=== PATIENT | male | born 1990 | race Caucasian/White ===

== ENCOUNTER 2022-02-28 11:18 | Emergency (ER) | payer OTHER, SELFPAY ==
--- NOTE | ~2022-02-28 | XR_ITS ---
EXAMINATION: XR abdomen/kub 1V INDICATION: Vomiting and diarrhea TECHNIQUE: Supine view of the abdomen is obtained. COMPARISON: None FINDINGS: The bowel gas pattern is normal. No dilated loops of bowel are evident. No abnormal calcifi cations are identified. IMPRESSION: 1. Unremarkable abdominal radiograph. Reviewed, dictated and finalized at location A.
[2022-02-28 11:34] VITALS: BP 126/49; PULSE 136; RESP 16; TEMP 36.1; O2SAT 98
--- NOTE | 2022-02-28 11:41 | ED.ABDPAIN ---
HPI - Abdominal Pain General Chief Complaint: Abdominal Pain Stated Complaint: VOMITING Time Seen by Provider: 02/28/22 11:35 Source: patient, RN notes reviewed and old records reviewed Mode of arrival: ambulatory Limitations: no limitations History of Present Illness HPI narrative: 31 year old male presents to [facility] with complaints of abdominal pain, nausea and vomiting since 629, and some diarrhea but thinks he is constipated. Patient reports that he has had stomach problems for the past 5 years without diagnosis. He states that he was suppose to have scopes done then COVID and they were cancelled. 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 He states that he has been on all kind of fiber therapy for his constipation with some of it making things worse. Patient reports that his last stool was 2 days ago.Patient reports that he wakes up every day with nausea. patient admits to use of marijuana but states stopped use for 6 months and was still having same symptoms. MD elicited complaint: abdominal pain Pertinent past history: constipation Pain Consistency: constant Location: periumbilical Radiation: none Associated symptoms: nausea and vomiting Related Data Allergies Allergy/AdvReac Type Severity Reaction Status Date / Time cat dander Allergy Unknown +allergy Verified 02/28/22 13:38 test dog dander Allergy Unknown Itching Verified 02/28/22 13:38 Review of Systems Review of Systems: CONSTITUTIONAL: Denies fever, chills, or sweats. EYES: Denies visual changes, redness, or discharge. ENT: Denies rhinorrhea, congestion, sore throat, or otalgia. CARDIOVASCULAR: Denies chest pain, palpitations, or edema. RESPIRATORY: Denies cough or dyspnea. GASTROINTESTINAL: Positive for abdominal pain, nausea, vomiting, or diarrhea and constipation GENITOURINARY: Denies dysuria or hematuria. SKIN: Denies rash or itching. MUSCULOSKELETAL: Denies back pain, joint pain, or myalgia. NEUROLOGIC: Denies headache, numbness, or weakness. PSYCHIATRIC: Positive anxiety or depression. All systems reviewed & are unremarkable except as noted in HPI and below PMFSH Past Medical History Medical History (Updated 02/28/22 @ 15:05 by Naa Bourgoeis MD) Abdominal pain Broken bones Nausea & vomiting Surgical History Surgical History H/O right knee surgery repair patella Social History Social History Smoking status: Former smoker Additional smoking assessment comments: Quit 10 years ago Alcohol intake: current Alcohol use details: social Substance use type: marijuana Last use: this morning Gender identity (if verbalized by the patient): Male Comments At time of signature, agree with nursing past medical, surgical, social and family history. There is no relevant family history pertinent to the presenting complaint Exam Narrative: GENERAL: Ill-appearing, fair-nourished, and in no acute distress. HEAD: Normocephalic, atraumatic. EYES: PERRLA and EOMI. ENT: Nares clear, no rhinorrhea or epistaxis. Mucous membranes moist.TM's normal, throat with mild redness no lesions or exudates or tonsil enlargement. NECK: Supple.no lymphadenopathy CHEST: Clear to auscultation. No respiratory distress. SAO2 98% on room air HEART: Regular rate and rhythm. No murmur heard. Normal peripheral pulses. ABDOMEN: Soft, tender around mid abdomen region, no McBurney point tenderness noted, nondistended, hypo active bowel sounds. EXTREMITIES: Normal range of motion. No edema. SKIN: Warm, dry, no rash. NEURO: No focal deficits. Alert and oriented x3. Course Course Level of Care: Express Care Visit Vital Signs Vital signs: Vital Signs Temperature 36.1 C L 02/28/22 11:34 Pulse Rate 136 H 02/28/22 11:34 Respiratory Rate 16 02/28/22 11:34 Blood Pressure
[2022-02-28] MEDS: ONDANSETRON HCL ODT 4 MG TABLET SUBLINGUAL (12:04)
== END 2022-02-28 12:31 | disposition short-term general hospital (02) ==
PROVIDERS: Emergency Provider Registered Nurse
DX: R10.33 Periumbilical pain (principal); R11.2 Nausea with vomiting, unspecified; Z87.891 Personal history of nicotine dependence
CPT/HCPCS: 74018; 99213; A9270; G0463

== ENCOUNTER 2022-02-28 12:56 | Emergency (ER) | payer OTHER, SELFPAY ==
--- NOTE | ~2022-02-28 | CT_ITS ---
EXAMINATION: CT abdomen pelvis w con DATE: 02/28/2022 15:14 INDICATION: Mid abdominal pain, vomiting. Leukocytosis. TECHNIQUE: Computed tomography (CT) of the abdomen and pelvis was performed with 100 CC Omnipaque 350 intravenous contrast. Automated exposure control and iterative reconstruction technique were employe d. Exam dose: 234.05 mGy-cm total exam DLP. COMPARISON: 02/28/2022 KUB FINDINGS: The lung bases are clear of infiltrate or consolidation. Normal heart size. No pericardial or pleural effusion. The liver, gallbladder, bile ducts, spleen, pancreas, pancreatic duct, and adrenal glands and kidneys are unremarkable. No urinary tract calculus or hydroureteronephrosis. The urinary bladder, prostate gland and seminal vesicles are unremarkable. Normal caliber of the abdominal aorta. No intraperitoneal or retroperitoneal or pelvic mass lesion or adenopathy or ascites. Normal appendix. No bowel obstruction or intraperitoneal free air. Included skeletal structures are unremarkable. IMPRESSION: Normal appendix No significant abnormality Reviewed, dictated and finalized at Location [facility]. Reviewed, dictated and finalized at location B.
--- NOTE | ~2022-02-28 | XR_ITS ---
EXAMINATION: XR chest 2V DATE: 02/28/2022 15:20 INDICATION: Nausea and vomiting TECHNIQUE: PA and lateral views of the chest are obtained. COMPARISON: None available FINDINGS: The lungs are free of acute opacities. There is no pleural effusion or pneumothorax. The ca rdiomediastinal silhouette is normal. The visualized bones and soft tissues are unremarkable. IMPRESSION: 1. No acute cardiopulmonary abnormality. Reviewed, dictated and finalized at location A.
[2022-02-28 13:06] VITALS: BP 130/84; PULSE 76; RESP 18; TEMP 36.6; O2SAT 100
[2022-02-28 13:55] LABS: Basophils Percent Auto 0.3 % (0.2-1.2); Hematocrit 44.4 % (42.0-52.0); Hemoglobin 15.2 g/dL (14.0-18.0); Immature Granulocyte Absolute 0.05 K/mm3 (0.00-0.031); Immature Granulocyte Percent A 0.4 % (0-0.5); Lymphocytes Absolute Auto 0.79 K/mm3 (0.9-3.2); Lymphocytes Percent Auto 5.7 % (18.3-44.2); Mean Corpuscular HGB Conc 34.2 g/dl (32-36); Mean Corpuscular Hemoglobin 30.6 pg (26-34); Mean Corpuscular Volume 89.5 fl (80-100); Mean Platelet Volume 11.6 fl (7.4-10.4); Monocytes Absolute Auto 0.6 K/mm3 (0.1-0.6); Neutrophils Absolute Auto 12.3 K/mm3 (1.3-6.7); Neutrophils Percent Auto 89.6 % (45.5-73.1); Platelet Count Result 235 k/mm3 (150-375); Red Blood Count 4.96 M/mm3 (4.6-6.20); Red Cell Distribution Width 12.4 % (11.5-14.5); White Blood Count 13.7 K/mm3 (4.5-10.0)
[2022-02-28 14:15] LABS: Alanine Aminotransferase 21 U/L (6-50); Albumin Level 4.9 g/dL (3.5-5.1); Alkaline Phosphatase 68 U/L (38-126); Anion Gap 9 mmol/L (8-16); Aspartate Amino Transferase 32 U/L (17-59); Bilirubin,Total 0.8 mg/dL (0.2-1.3); Blood Urea Nitrogen 10 mg/dL (9-20); Calcium 9.6 mg/dL (8.4-10.2); Carbon Dioxide 25 mmol/L (22-30); Chloride 104 mmol/L (98-107); Estimated CRCL calculation 94 ml/min; Estimated Glomerular Filt Rate > 60; Glucose 127 mg/dL (65-110); Lipase 45 U/L (23-300); Potassium 3.6 mmol/L (3.4-5.0); Sodium 138 mmol/L (137-145)
--- NOTE | 2022-02-28 14:39 | ED.NAVMDI ---
HPI - Nausea/Vomiting/Diarrhea General Chief complaint: Nausea/Vomiting/Diarrhea Stated complaint: vomiting, dehydration Time Seen by Provider: 02/28/22 14:20 Source: patient Mode of arrival: ambulatory Limitations: no limitations History of Present Illness HPI Narrative: Patient is a 31-year-old male with a history of irritable bowel syndrome presenting to the emergency department for evaluation of nausea, vomiting, abdominal pain. Patient reports that he has had multiple episodes of nonbloody, nonbilious emesis over the past 72 hours. Patient states that he struggles with chronic nausea and vomiting that is usually at its worst in the morning. 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 [facility], denies taking any antinausea medication or pain medication. Patient denies history of endoscopy in the past, states that these were canceled secondary to COVID. Patient now is permanently residing in this area but has not established care at the local [place]. Patient denies fever, chills, reports diaphoresis at times. He reports burning chest pain without jaw pain, neck pain or shoulder pain. Patient reports burning epigastric pain as well as associated nausea. Patient reports he struggles with chronic constipation. Patient has not had a bowel movement today. Reports history of COVID for which she did not require hospitalization Patient does report marijuana use which is what he states helps to alleviate his symptoms. In the past he had discontinue marijuana for 6 months without a change in his symptoms. Patient denies history of abdominal surgery. Of note, the time of my assessment, patient states he is very thirsty and is tolerating ice chips without nausea or vomiting. Related Data Allergies Allergy/AdvReac Type Severity Reaction Status Date / Time cat dander Allergy Unknown +allergy Verified 02/28/22 13:38 test dog dander Allergy Unknown Itching Verified 02/28/22 13:38 Review of Systems Review of Systems: CONSTITUTIONAL: Denies fever, chills, or sweats. EYES: Denies visual changes, redness, or discharge. ENT: Denies rhinorrhea, congestion, sore throat, or otalgia. CARDIOVASCULAR: Denies chest pain, palpitations, or edema. RESPIRATORY: Denies cough or dyspnea. GASTROINTESTINAL: Reports abdominal pain, nausea and vomiting GENITOURINARY: Denies dysuria or hematuria. SKIN: Denies rash or itching. MUSCULOSKELETAL: Denies back pain, joint pain, or myalgia. NEUROLOGIC: Denies headache, numbness, or weakness. [facility] Past Medical History Medical History (Updated 02/28/22 @ 16:38 by Naa Bourgeois MD) Abdominal pain Broken bones Nausea & vomiting Surgical History Surgical History H/O right knee surgery repair patella Social History Social History Smoking status: Former smoker Additional smoking assessment comments: Quit 10 years ago Alcohol intake: current Alcohol use details: social Substance use type: marijuana Last use: this morning Gender identity (if verbalized by the patient): Male Exam Narrative: GENERAL: Awake, alert, conversant HEAD: Normocephalic, atraumatic. EYES: PERRLA and EOMI. ENT: Nares clear, no rhinorrhea or epistaxis. Mucous membranes moist. NECK: Supple. CHEST: No respiratory distress, breathing even and non labored HEART: Regular rate, sinus rhythm ABDOMEN:Non distended, tender in the epigastrium and periumbilical area without rigidity, guarding, rebound, no flank tenderness bilaterally EXTREMITIES: Normal range of motion. No edema. SKIN: Warm, dry, no rash. NEURO:No focal deficits. Alert and oriented x3 Course Vital Signs Vital signs: Vital Signs Temperature 36.6 C 02/28/22 13:06 Pulse Rate 76 02/28/22 13:06 Respiratory Rate 18 02/28/22 13:06 Blood Pressure
[2022-02-28 15:02] LABS: Appearance Urine Cloudy (Clear); Bilirubin Urine 1+ (Negative); Blood Urine Negative (Negative); Color Urine Yellow (Yellow); Glucose Urine UA Negative (Negative); Ketones Urine 4+ mg/dL (Negative); Leukocyte Esterase Ur Negative LEU/UL (Negative); Nitrate Urine Negative (Negative); Protein Urine 2+ mg/dL (Negative); pH Urine 8.5 (5.0-9.0)
--- NOTE | 2022-02-28 15:05 | ECG_ITS ---
Measurements Intervals [place] Rate: 66 P: 44 HI: 136 QRS: 71 QRSD: 89 T: 55 QT: 403 QTc: 425 Interpretive Statements SINUS RHYTHM WITH SINUS ARRHYTHMIA INCOMPLETE RIGHT BUNDLE BRANCH BLOCK BORDERLINE ECG Electronically Signed On 02-28-2022 16:07:53 CDT by Steve Parisi D.O.
[2022-02-28 15:13] LABS: Add Urine Microscopic? YES; Bacteria Urine Trace /hpf; Mucus Urine Heavy /lpf; RBC Urine 21-50 /hpf (0-2); Squamous Epithelial Cell Urine Rare /hpf (Few); WBC Urine 0-3 /hpf
[2022-02-28] MEDS: SODIUM CHLORIDE 0.9% IV 1,000 ML 999 ML IV CONT (15:25)
[2022-02-28] MEDS: DICYCLOMINE HCL INJ 20 MG/2 ML VIAL IM (15:25)
[2022-02-28] MEDS: METOCLOPRAMIDE HCL INJ 10 MG/2 ML VIAL IV PUSH (15:26)
[2022-02-28] MEDS: FAMOTIDINE 20 MG/2 ML VIAL IV PUSH (15:26)
[2022-02-28 15:33] LABS: Troponin I < 0.012 ng/mL (0.000-0.034)
[2022-02-28 16:48] VITALS: BP 121/76; PULSE 94; RESP 16; O2SAT 98
== END 2022-02-28 17:23 | disposition home or self-care (01) ==
PROVIDERS: Emergency Medicine; Emergency Provider Emergency Medicine
DX: K52.9 Noninfective gastroenteritis and colitis, unspecified (principal); E86.0 Dehydration; Z86.16 Personal history of COVID-19; Z87.891 Personal history of nicotine dependence; K58.9 Irritable bowel syndrome, unspecified
CPT/HCPCS: 36415; 71046; 74177; 80053; 81001; 83690; 84484; 85025; 93005; 96361; 96372; 96374; 96375; 99284; J0131; J0500; J2765; J7030; Q9967

== ENCOUNTER 2022-03-02 03:14 | Emergency (ER) | payer OTHER, SELFPAY ==
[2022-03-02 03:15] VITALS: BP 122/75; PULSE 89; RESP 18; TEMP 36.3; O2SAT 97
[2022-03-02 03:35] VITALS: BP 134/93
[2022-03-02] MEDS: METOCLOPRAMIDE HCL INJ 10 MG/2 ML VIAL IM (03:49)
[2022-03-02] MEDS: FAMOTIDINE 20 MG/2 ML VIAL IV PUSH (04:19)
[2022-03-02] MEDS: SODIUM CHLORIDE 0.9% IV 2,000 ML 999 ML IV CONT (04:20)
[2022-03-02] MEDS: diphenhydrAMINE HCl INJ 50 MG/ML VIAL IV PUSH (04:20)
[2022-03-02 04:31] VITALS: BP 121/79; O2SAT 100
[2022-03-02 05:01] VITALS: BP 114/69; O2SAT 100
[2022-03-02 05:16] VITALS: BP 113/66; O2SAT 100
--- NOTE | 2022-03-02 05:23 | ED.NAVMDI ---
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 States that symptoms are similar to 2 days ago, but he feels worse, endorses abdominal pain he thinks from throwing up. No fevers or chills. Related Data Allergies Allergy/AdvReac Type Severity Reaction Status Date / Time cat dander Allergy Unknown +allergy Verified 03/02/22 03:17 test dog dander Allergy Unknown Itching Verified 03/02/22 03:17 Review of Systems Review of Systems: All systems reviewed & are unremarkable except as noted in HPI and below PMFSH Past Medical History Medical History Abdominal pain Broken bones Nausea & vomiting Surgical History Surgical History H/O right knee surgery repair patella Social History Social History Smoking status: Former smoker Additional smoking assessment comments: Quit 10 years ago Alcohol intake: current Alcohol use details: social Substance use type: marijuana Last use: this morning Gender identity (if verbalized by the patient): Male Exam Narrative: EXAMINATION OF ORGAN SYSTEMS/BODY AREAS: Constitutional: Vital signs per nursing GENERAL: Actively retching, appears miserable HEAD: Normal with no signs of head trauma. EYES: EOMI, conjunctiva normal ENT: Hearing grossly intact LUNGS: Nonlabored breathing. HEART: [Regular rate and rhythm] ABD: [Soft], [tender to palpation epigastric] EXT: Normal range of motion SKIN: [No rashes or lesions.] NEURO: [Alert and oriented x 3. No gross focal sensory or strength deficits.] PSYCH: Normal affect Course Course Emergency Course: Electronic medical record was reviewed. Patient presented to the ED with complaint of [abdominal pain and vomiting]. Vitals [were within acceptable limits]. Physical exam revealed [tenderness to palpation in epigastric abdomen]. Based on the patient's history and physical exam, my differential includes but is not limited to [gastritis, gastroenteritis, cholecystitis, pancreatitis, appendicitis], though less likely acute intraabdominal etiology given negative CT from 2d ago and no new symptoms. [IV access was established by nursing staff. Patient was given reglan, IV fluids, famotidine]. On reevaluation, the patient states that they are feeling much better, he is resting comfortably and states he hasn't felt this well in a week. There were no further witnessed episodes of vomiting in the emergency department. They are not complaining of any new abdominal pain. Repeat examination did not show any significant guarding or rebound. No new tenderness. At this time I do not feel there is any further emergent workup or treatment to be provided. The patient was given strict return precautions, if they are to develop any worsening abdominal pain or vomiting they are to return to the emergency department immediately. Patient verbally acknowledges understanding these directions. They will be discharged home [with prescriptions]. They were advised to follow-up with GI and PCP in 2 days. The patient feels that this is appropriate medical decision making and verbalizes an understanding of the discharge instructions. DISPOSITION: [Home] CONDITION: Fair. FOLLOWUP: With [PCP]/GI in 2 days. FINAL IMPRESSIONS: 1. Abdominal pain, NOS Vital Signs Vital signs: Vital Signs Temperature 97.3 F L 03/02/22 03:15 Pulse Rate 89 03/02/22
== END 2022-03-02 06:18 | disposition home or self-care (01) ==
PROVIDERS: Emergency Provider Emergency Medicine
DX: K52.9 Noninfective gastroenteritis and colitis, unspecified (principal); E86.0 Dehydration; Z87.891 Personal history of nicotine dependence
CPT/HCPCS: 96361; 96372; 96374; 96375; 99284; J1200; J2765; J7030

== ENCOUNTER 2022-08-03 03:22 | Emergency (ER) | payer OTHER, SELFPAY ==
[2022-08-03] VITALS (10 sets, daily range): BP systolic 99–139; BP diastolic 71–88; PULSE 63–92; RESP 14–23; TEMP 36.1; O2SAT 97–100
[2022-08-03 03:57] LABS: Basophils Percent Auto 0.3 % (0.2-1.2); Eosinophils Absolute Auto 0.1 K/mm3 (0-0.3); Eosinophils Percent Auto 0.7 % (0-4.4); Hematocrit 46.4 % (42.0-52.0); Immature Granulocyte Absolute 0.03 K/mm3 (0.00-0.031); Immature Granulocyte Percent A 0.3 % (0-0.5); Lymphocytes Absolute Auto 1.39 K/mm3 (0.9-3.2); Lymphocytes Percent Auto 11.7 % (18.3-44.2); Mean Corpuscular HGB Conc 34.5 g/dl (32-36); Mean Corpuscular Hemoglobin 30.4 pg (26-34); Mean Platelet Volume 11.9 fl (7.4-10.4); Monocytes Absolute Auto 1.1 K/mm3 (0.1-0.6); Monocytes Percent Auto 9.3 % (2.6-8.5); Neutrophils Absolute Auto 9.3 K/mm3 (1.3-6.7); Neutrophils Percent Auto 77.7 % (45.5-73.1); Platelet Count Result 205 k/mm3 (150-375); Red Blood Count 5.27 M/mm3 (4.6-6.20); Red Cell Distribution Width 12.5 % (11.5-14.5); White Blood Count 11.9 K/mm3 (4.5-10.0)
[2022-08-03] MEDS: SODIUM CHLORIDE 0.9% IV 1,000 ML 999 ML IV CONT (03:59)
[2022-08-03] MEDS: ONDANSETRON INJ 4 MG/2 ML VIAL IV PUSH (03:59)
[2022-08-03] MEDS: MORPHINE SULFATE (*CRX) 4 MG/ML INJ IV PUSH (04:01)
[2022-08-03 04:53] LABS: Alanine Aminotransferase 17 U/L (6-50); Alkaline Phosphatase 60 U/L (38-126); Anion Gap 10 mmol/L (8-16); Aspartate Amino Transferase 21 U/L (17-59); Bilirubin,Total 0.8 mg/dL (0.2-1.3); Blood Urea Nitrogen 12 mg/dL (9-20); Calcium 8.5 mg/dL (8.4-10.2); Carbon Dioxide 26 mmol/L (22-30); Chloride 103 mmol/L (98-107); Estimated CRCL calculation 94 ml/min; Estimated Glomerular Filt Rate > 60; Glucose 128 mg/dL (65-110); Lipase 34 U/L (23-300); Potassium 3.5 mmol/L (3.4-5.0); Sodium 139 mmol/L (137-145)
[2022-08-03] MEDS: PSEUDOEPHEDRINE HCL 30 MG TABLET PO (05:49)
--- NOTE | 2022-08-03 06:03 | ED.ABDPAIN ---
HPI - Abdominal Pain General Chief Complaint: Abdominal Pain Stated Complaint: N/V, abd pain Time Seen by Provider: 08/03/22 03:40 History of Present Illness HPI narrative: Patient is a 31-year-old male who presents ER with nausea and vomiting. Reports began this evening because he has bad postnasal drip that is causing him to gag which then makes him vomit. Due to his vomiting he is now having epigastric discomfort as well. He has not tried any decongestants. He has not had any antinausea medication. Denies fevers or chills or sweats. No diarrhea. No known sick contacts. Symptoms are worsened by laying backwards and better with sitting upright. Patient reports he had endoscopy 3 weeks ago that was unremarkable. Related Data Allergies Allergy/AdvReac Type Severity Reaction Status Date / Time cat dander Allergy Unknown +allergy Verified 08/03/22 03:45 test dog dander Allergy Unknown Itching Verified 08/03/22 03:45 Review of Systems Review of Systems: All systems reviewed & are unremarkable except as noted in HPI and below Constitutional: Constitutional: Denies chills, Denies fatigue and Denies fever(s) ENT: Denies dysphagia, Reports nasal congestion and Denies sore throat Cardiovascular: Cardiovascular: Denies chest pain and Denies rapid heart rate Respiratory: Respiratory: Denies cough and Denies dyspnea Gastrointestinal: Gastrointestinal: Reports abdominal pain, Denies constipation, Denies diarrhea, Reports nausea and Reports vomiting Integumentary/Breasts: Skin/Breast: Denies erythema and Denies rash PMFSH Past Medical History Medical History Abdominal pain Broken bones Nausea & vomiting Surgical History Surgical History H/O right knee surgery repair patella Social History Social History Smoking status: Former smoker Additional smoking assessment comments: Quit 10 years ago Alcohol intake: current Alcohol use details: social Substance use type: marijuana Last use: this morning Gender identity (if verbalized by the patient): Male Exam Narrative: GENERAL: Well-appearing, well-nourished, and in no acute distress. HEAD: Normocephalic, atraumatic. ENT: Mucous membranes moist. CHEST: Clear to auscultation. No respiratory distress. HEART: Regular rate and rhythm. Normal peripheral pulses. ABDOMEN: Soft, mild epigastric tenderness, nondistended, normal active bowel sounds. EXTREMITIES: Normal range of motion. No edema. SKIN: Warm, dry, no rash. NEURO: Alert and oriented x3. PSYCH: Normal mood and affect. Course Course Emergency Course: Nausea and vomiting improved. Discharge home. Repeat exam patient nontender. Vital Signs Vital signs: Vital Signs Temperature 97.0 F L 08/03/22 03:30 Pulse Rate 82 08/03/22 03:30 Respiratory Rate 14 08/03/22 03:30 Blood Pressure 139/85 08/03/22 03:30 Pulse Oximetry 98 08/03/22 03:30 Oxygen Delivery Room Air 08/03/22 03:30 Temperature 97.0 F L 08/03/22 03:30 Pulse Rate 70 08/03/22 07:16 Respiratory Rate 17 08/03/22 07:16 Blood Pressure 108/75 08/03/22 07:16 Pulse Oximetry 97 08/03/22 07:16 Oxygen Delivery Room Air 08/03/22 03:30 MDM - Abdominal Pain Lab Data Result diagrams: 08/03/22 03:52 08/03/22 04:27 Labs: Lab Results 08/03/22 08/03/22 Range/Units 03:52 04:27 WBC 11.9 H (4.5-10.0) K/mm3 RBC 5.27 (4.6-6.20) M/mm3 Hgb 16.0 (14.0-18.0) g/dL Hct 46.4 (42.0-52.0) % MCV 88.0 (80-100) fl MCH 30.4 (26-34) pg MCHC 34.5 (32-36) g/dl RDW 12.5 (11.5-14.5) % Plt Count 205 (150-375) k/mm3 MPV 11.9 H (7.4-10.4) fl Immature Gran % (Auto) 0.3 (0-0.5) % Neut % (Auto) 77.7 H (45.5-73.1) % Lymph % (Auto) 11.7 L (18.3-44.2) % [place]ites[place] % (Auto) 9.3 H (2.6-8.5) % Eos %
== END 2022-08-03 08:37 | disposition home or self-care (01) ==
PROVIDERS: Emergency Provider Emergency Medicine
DX: R11.2 Nausea with vomiting, unspecified (principal); R09.82 Postnasal drip; R10.13 Epigastric pain; Z87.891 Personal history of nicotine dependence
CPT/HCPCS: 36415; 80053; 83690; 85025; 96374; 96375; 99284; A9270; J2270; J2405; J7030

== ENCOUNTER 2022-09-12 08:10 | Emergency (ER) | payer OTHER, SELFPAY ==
[2022-09-12 08:24] VITALS: BP 130/81; PULSE 94; RESP 18; TEMP 36.6; O2SAT 100
[2022-09-12] MEDS: ONDANSETRON INJ 4 MG/2 ML VIAL IV PUSH ×2 (08:46→10:41)
[2022-09-12] MEDS: SODIUM CHLORIDE 0.9% IV 1,000 ML 999 ML IV CONT (08:46)
[2022-09-12 08:57] LABS: Basophils Absolute Auto 0.1 K/mm3 (0.0-0.1); Basophils Percent Auto 0.4 % (0.2-1.2); Eosinophils Absolute Auto 0.1 K/mm3 (0-0.3); Eosinophils Percent Auto 0.5 % (0-4.4); Hematocrit 45.4 % (42.0-52.0); Immature Granulocyte Absolute 0.06 K/mm3 (0.00-0.031); Immature Granulocyte Percent A 0.4 % (0-0.5); Lymphocytes Percent Auto 8.1 % (18.3-44.2); Mean Corpuscular HGB Conc 35.2 g/dl (32-36); Mean Corpuscular Hemoglobin 31.1 pg (26-34); Mean Corpuscular Volume 88.2 fl (80-100); Mean Platelet Volume 11.8 fl (7.4-10.4); Monocytes Absolute Auto 0.8 K/mm3 (0.1-0.6); Monocytes Percent Auto 5.1 % (2.6-8.5); Neutrophils Absolute Auto 13.7 K/mm3 (1.3-6.7); Neutrophils Percent Auto 85.5 % (45.5-73.1); Platelet Count Result 236 k/mm3 (150-375); Red Blood Count 5.15 M/mm3 (4.6-6.20); Red Cell Distribution Width 12.6 % (11.5-14.5)
[2022-09-12 09:10] LABS: Appearance Urine Slightly Cloudy (Clear); Bilirubin Urine 1+ (Negative); Blood Urine Negative (Negative); Color Urine Yellow (Yellow); Glucose Urine UA Negative (Negative); Ketones Urine 1+ mg/dL (Negative); Leukocyte Esterase Ur Negative LEU/UL (Negative); Nitrate Urine Negative (Negative); Protein Urine 2+ mg/dL (Negative)
[2022-09-12 09:12] LABS: Add Urine Microscopic? YES
[2022-09-12 09:14] LABS: Alanine Aminotransferase 20 U/L (6-50); Albumin Level 4.8 g/dL (3.5-5.1); Alkaline Phosphatase 78 U/L (38-126); Anion Gap 7 mmol/L (8-16); Aspartate Amino Transferase 30 U/L (17-59); Bilirubin,Total 0.5 mg/dL (0.2-1.3); Blood Urea Nitrogen 8 mg/dL (9-20); Calcium 9.6 mg/dL (8.4-10.2); Carbon Dioxide 24 mmol/L (22-30); Chloride 105 mmol/L (98-107); Estimated CRCL calculation 86 ml/min; Estimated Glomerular Filt Rate > 60; Glucose 144 mg/dL (65-110); Lipase 98 U/L (23-300); Potassium 3.7 mmol/L (3.4-5.0); Sodium 136 mmol/L (137-145)
[2022-09-12 09:23] LABS: Bacteria Urine Trace /hpf; Mucus Urine Heavy /lpf; WBC Urine 0-3 /hpf
[2022-09-12 10:14] VITALS: BP 131/78; PULSE 70; RESP 17; O2SAT 100
[2022-09-12] MEDS: FAMOTIDINE 20 MG/2 ML VIAL IV PUSH (10:41)
[2022-09-12 11:55] VITALS: BP 136/84; PULSE 82; RESP 16; O2SAT 98
--- NOTE | 2022-09-12 12:05 | ED.NAVMDI ---
HPI - Nausea/Vomiting/Diarrhea General Chief complaint: Nausea/Vomiting/Diarrhea Stated complaint: n/v since 399, can't regulate my temp Time Seen by Provider: 09/12/22 08:18 History of Present Illness HPI Narrative: Patient is a 31-year-old male who presents ER with nausea and vomiting. Normal this morning. He has waves of dry heaving. Reports chronic diarrhea. Has chronic GI issues that he sees a GI physician at the [place] for. He had a endoscopy and colonoscopy 3 months ago that he reports was unremarkable. No blood in the stool or emesis. Reports he tried taking a Zofran but it caused him to have upset stomach. He opted to come here for further evaluation. No recent sick contacts. Related Data Allergies Allergy/AdvReac Type Severity Reaction Status Date / Time cat dander Allergy Unknown +allergy Verified 09/12/22 08:27 test dog dander Allergy Unknown Itching Verified 09/12/22 08:27 Review of Systems Review of Systems: All systems reviewed & are unremarkable except as noted in HPI and below Constitutional: Constitutional: Reports chills, Denies fatigue and Denies fever(s) ENT: Denies nasal congestion and Denies sore throat Cardiovascular: Cardiovascular: Denies chest pain, Denies rapid heart rate and Denies radiating jaw, neck or arm pain Respiratory: Respiratory: Denies cough, Denies dyspnea and Denies wheezing Gastrointestinal: Gastrointestinal: Reports abdominal pain, Reports diarrhea, Reports nausea and Reports vomiting Genitourinary: Genitourinary: Denies dysuria and Denies urinary frequency PMFSH Past Medical History Medical History Abdominal pain Broken bones Nausea & vomiting Surgical History Surgical History H/O right knee surgery repair patella Social History Social History Smoking status: Former smoker Additional smoking assessment comments: Quit 10 years ago Alcohol intake: current Alcohol use details: social Substance use type: marijuana Last use: this morning Gender identity (if verbalized by the patient): Male Exam Narrative: GENERAL: Uncomfortable/anxious-appearing, well-nourished, and in no acute distress. HEAD: Normocephalic, atraumatic. EYES: PERRL and EOMI. ENT: Mucous membranes moist. CHEST: Clear to auscultation. No respiratory distress. HEART: Regular rate and rhythm. Normal peripheral pulses. ABDOMEN: Soft, nontender, nondistended. EXTREMITIES: Normal range of motion. No edema. SKIN: Warm, dry, no rash. NEURO: Alert and oriented x3. PSYCH: Normal mood and affect. Course Course Emergency Course: No emesis. Antiemetics have helped. Patient is having some hiccuping which is causing him to have an upset stomach. He is unable to eat eat while in the ER will be discharged. Vital Signs Vital signs: Vital Signs Temperature 97.8 F 09/12/22 08:24 Pulse Rate 94 09/12/22 08:24 Respiratory Rate 18 09/12/22 08:24 Blood Pressure 130/81 09/12/22 08:24 Pulse Oximetry 100 09/12/22 08:24 Oxygen Delivery Room Air 09/12/22 08:24 Temperature 97.8 F 09/12/22 08:24 Pulse Rate 70 09/12/22 10:14 Respiratory Rate 17 09/12/22 10:14 Blood Pressure 131/78 09/12/22 10:14 Pulse Oximetry 100 09/12/22 10:14 Oxygen Delivery Room Air 09/12/22 08:24 MDM - Nausea/Vomiting/Diarrhea Lab Data Result diagrams: 09/12/22 08:49 09/12/22 08:49 Labs: Lab Results 09/12/22 09/12/22 09/12/22 Range/Units 08:49 08:49 08:49 WBC 16.0 H (4.5-10.0) K/mm3 RBC 5.15 (4.6-6.20) M/mm3 Hgb 16.0 (14.0-18.0) g/dL Hct 45.4 (42.0-52.0) % MCV 88.2 (80-100) fl MCH 31.1 (26-34) pg MCHC 35.2 (32-36) g/dl RDW 12.6 (11.5-14.5) % Plt Count 236 (150-375) k/mm3 MPV 11.8 H (7.4-10.4) fl Immature Gran % (Auto) 0.4 (0-0.5)
== END 2022-09-12 12:41 | disposition home or self-care (01) ==
PROVIDERS: Emergency Provider Emergency Medicine
DX: R11.2 Nausea with vomiting, unspecified (principal); Z87.891 Personal history of nicotine dependence
CPT/HCPCS: 36415; 80053; 81001; 83690; 85025; 96361; 96374; 96375; 99284; J2405; J7030

== ENCOUNTER 2022-09-14 12:05 | Emergency (ER) | payer OTHER, SELFPAY ==
--- NOTE | ~2022-09-14 | US_ITS ---
EXAMINATION: US abdomen limited DATE: 09/14/2022 15:13 INDICATION: Nausea, vomiting and epigastric pain. TECHNIQUE: Multiple grayscale and Doppler ultrasound images of the abdomen were obtained. COMPARISON: None FINDINGS: The pancreatic head and body are normal in appearance. The pancreatic tail is not visualized. Liver has normal echogenicity and contour, with a smooth surface. No liver lesion identified. No intrahepat ic biliary duct dilation suspected. Portal venous flow was seen in the hepatopetal, normal direction and has normal Doppler waveform. The gallbladder is normal in appearance. There is no cholelithiasis . The common bile duct measures 4 mm, which is normal. Sonographic Miranda sign was reported as negati ve by the personal carer. Visualized proximal inferior vena cava is normal. Visualized right kidney demo nstrates normal contour and echogenicity with no hydronephrosis. IMPRESSION: 1. Normal right upper quadrant ultrasound. Reviewed, dictated and finalized at location A. INSTRUCTOR
[2022-09-14 12:20] VITALS: BP 133/97; PULSE 87; RESP 18; TEMP 37.5; O2SAT 100
[2022-09-14 12:34] LABS: Basophils Percent Auto 0.2 % (0.2-1.2); Hematocrit 43.7 % (42.0-52.0); Immature Granulocyte Absolute 0.04 K/mm3 (0.00-0.031); Immature Granulocyte Percent A 0.3 % (0-0.5); Lymphocytes Absolute Auto 1.21 K/mm3 (0.9-3.2); Lymphocytes Percent Auto 10.4 % (18.3-44.2); Mean Corpuscular HGB Conc 34.3 g/dl (32-36); Mean Corpuscular Hemoglobin 30.2 pg (26-34); Mean Corpuscular Volume 87.9 fl (80-100); Mean Platelet Volume 11.6 fl (7.4-10.4); Monocytes Absolute Auto 0.7 K/mm3 (0.1-0.6); Monocytes Percent Auto 6.4 % (2.6-8.5); Neutrophils Absolute Auto 9.6 K/mm3 (1.3-6.7); Neutrophils Percent Auto 82.7 % (45.5-73.1); Platelet Count Result 220 k/mm3 (150-375); Red Blood Count 4.97 M/mm3 (4.6-6.20); Red Cell Distribution Width 12.5 % (11.5-14.5); White Blood Count 11.6 K/mm3 (4.5-10.0)
[2022-09-14 12:55] LABS: Alanine Aminotransferase 21 U/L (6-50); Alkaline Phosphatase 65 U/L (38-126); Anion Gap 13 mmol/L (8-16); Aspartate Amino Transferase 32 U/L (17-59); Blood Urea Nitrogen 13 mg/dL (9-20); Calcium 9.8 mg/dL (8.4-10.2); Carbon Dioxide 25 mmol/L (22-30); Chloride 95 mmol/L (98-107); Estimated CRCL calculation 89 ml/min; Estimated Glomerular Filt Rate > 60; Glucose 124 mg/dL (65-110); Lipase 55 U/L (23-300); Potassium 3.7 mmol/L (3.4-5.0); Sodium 133 mmol/L (137-145)
--- NOTE | 2022-09-14 14:54 | ED.NAVMDI ---
HPI - Nausea/Vomiting/Diarrhea General Chief complaint: Nausea/Vomiting/Diarrhea Stated complaint: nausea, vomiting, stomach cramps Time Seen by Provider: 09/14/22 14:47 History of Present Illness HPI Narrative: Patient is a 31-year-old male with a history of chronic GI issues here for evaluation of acute on chronic nausea vomiting and epigastric discomfort for the past 4 days. Patient states he has been unable to tolerate any p.o. and has vomited after every trial. Has attempted Zofran without any relief. Has been seen at this facility numerous times for this, has underwent CT scans of the abdomen pelvis without acute findings. He also recently saw a GI specialist and underwent upper and lower endoscopy without acute findings per patient. No fevers, chills, history of marijuana use, dysuria, urgency or frequency. Patient tells me he has chronic diarrhea. Related Data Allergies Allergy/AdvReac Type Severity Reaction Status Date / Time cat dander Allergy Unknown +allergy Verified 09/12/22 08:27 test dog dander Allergy Unknown Itching Verified 09/12/22 08:27 Review of Systems Review of Systems: Gen.: Denies fevers or chills Eyes: Denies eye pain or visual change ENT: Denies congestion Respiratory: Denies shortness of breath or cough CV: Denies chest pain or palpitations GI: Reports abdominal pain, nausea and vomiting. Reports chronic diarrhea. denies burning, urgency, frequency or hematuria Musculoskeletal: Denies back pain or muscle pain Neuro: Denies numbness, tingling, weakness or focal weakness Skin: Denies rash Except as documented, all other systems reviewed and negative PMFSH Past Medical History Medical History Abdominal pain Broken bones Nausea & vomiting Surgical History Surgical History H/O right knee surgery repair patella Social History Social History Smoking status: Former smoker Additional smoking assessment comments: Quit 10 years ago Alcohol intake: current Alcohol use details: social Substance use type: marijuana Last use: this morning Gender identity (if verbalized by the patient): Male Exam Narrative: APPEARANCE: Well appearing, no pain in distress, well-nourished. Head: Normocephalic and atraumatic. EYES: PERRLA/EOMI, conjunctivae clear NOSE: No nasal drainage EARS: External ear normal in appearance THROAT: Oropharynx is clear. Mucous membranes are moist. NECK: Supple. No adenopathy, no masses. RESPIRATORY: Airway patent, respirations nonlabored. Clear to auscultation bilaterally, no rales, rhonchi, wheezing. CARDIOVASCULAR: Regular rate and rhythm without murmurs, rubs, or gallops. ABDOMINAL: Normoactive bowel sounds. Soft, nontender, nondistended. No rebound tenderness or guarding. MUSCULOSKELETAL: Extremities are warm and well-perfused. Moves all extremities well. No edema. NEURO: Normal speech. No focal neurologic deficits. SKIN: Skin is warm and dry. No rashes. PSYCHIATRIC: Normal affect/mood. Course Vital Signs Vital signs: Vital Signs Temperature 99.5 F 09/14/22 12:20 Pulse Rate 87 09/14/22 12:20 Respiratory Rate 18 09/14/22 12:20 Blood Pressure 133/97 H 09/14/22 12:20 Pulse Oximetry 100 09/14/22 12:20 Temperature 99.5 F 09/14/22 12:20 Pulse Rate 79 09/14/22 17:58 Respiratory Rate 16 09/14/22 17:58 Blood Pressure 119/74 09/14/22 17:58 Pulse Oximetry 99 09/14/22 17:58 MDM - Nausea/Vomiting/Diarrhea MDM Narrative Medical decision making narrative: 31-year-old male here for evaluation of acute on chronic nausea, vomiting and epigastric discomfort over the past several days. Patient is nontoxic-appearing and has normal vital signs. No abdominal tenderness on exam. Noted to have frequent ED visits for the same. Patient's white count is 11
[2022-09-14] MEDS: diphenhydrAMINE HCl INJ 50 MG/ML VIAL 12.5 MG IV PUSH (15:16)
[2022-09-14] MEDS: FAMOTIDINE 20 MG/2 ML VIAL IV PUSH (15:19)
[2022-09-14] MEDS: METOCLOPRAMIDE HCL INJ 10 MG/2 ML VIAL IV PUSH (15:19)
[2022-09-14] MEDS: SODIUM CHLORIDE 0.9% IV 1,000 ML 999 ML IV CONT ×2 (15:19→16:12)
[2022-09-14 15:47] LABS: Appearance Urine Slightly Cloudy (Clear); Bilirubin Urine 1+ (Negative); Blood Urine Negative (Negative); Color Urine Yellow (Yellow); Glucose Urine UA Negative (Negative); Ketones Urine 4+ mg/dL (Negative); Leukocyte Esterase Ur Negative LEU/UL (Negative); Nitrate Urine Negative (Negative); Protein Urine 1+ mg/dL (Negative); Specific Grav Ur >= 1.030 (1.001-1.035); Urobilinogen Urine 0.2 mg/dL (<2.0)
[2022-09-14 15:51] LABS: Bacteria Urine Trace /hpf; Calcium Oxalate Crystals Urine Present /hpf; Mucus Urine Heavy /lpf; Squamous Epithelial Cell Urine Rare /hpf (Few); WBC Urine 0-3 /hpf
[2022-09-14 16:02] LABS: Add Urine Microscopic? YES
[2022-09-14 17:58] VITALS: BP 119/74; PULSE 79; RESP 16; O2SAT 99
== END 2022-09-14 18:00 | disposition home or self-care (01) ==
PROVIDERS: Emergency Medicine; Emergency Provider Physician Assistant
DX: K29.70 Gastritis, unspecified, without bleeding (principal); Z87.891 Personal history of nicotine dependence
CPT/HCPCS: 36415; 76705; 80053; 81001; 83690; 85025; 96361; 96374; 96375; 99284; J1200; J2765; J7030